=== PATIENT | female | born 1960 | race Caucasian/White ===

== ENCOUNTER 2019-01-28 06:50 | Inpatient (IN) | payer BC ==
[2019-01-23 13:18] LABS: BASO % 0.4 % (0-6); GRAN % 58.6 % (47-80); HEMATOCRIT 45.3 % (35.0-47.0); HEMOGLOBIN 14.2 gm/dl (11.6-16.0); LYMPH % 29.9 % (16-45); MEAN CORPUSCULAR HEMOGLOBIN 27.9 pg (27-33); MEAN CORPUSCULAR HGB CONC 31.3 g/dl (32-36); MEAN PLATELET VOLUME 9.9 fl (7.4-10.4); MONO % 6.1 % (0-9); PLATELET COUNT 357 K/uL (130-400); RED BLOOD COUNT 5.09 M/uL (3.80-5.40); RED CELL DISTRIBUTION WIDTH 13.2 % (11.5-14.5); WHITE BLOOD COUNT W/O DIFF 7.7 K/uL (4.2-12.2)
[2019-01-23 13:35] LABS: BLOOD UREA NITROGEN 17 mg/dL (8-23); CREATININE 0.6 mg/dL (0.5-0.9); EST GLOMERULAR FILTRATION RATE > 60 mL/min; GLUCOSE,RANDOM 84 mg/dL (74-109)
[~2019-01-28 06:50] MED LIST: CEFAZOLIN 1G VIAL IVP ONE; CEFAZOLIN 2 Gram 2 GM/50 ML BAG IVPB SCH; FAMOTIDINE 20MG TABLET PO ONE; MECLIZINE 25 MG TABLET PO ONE; METOCLOPRAMIDE 10 MG TABLET PO ONE; WATER STERILE FOR INJECTION 20 ML VIAL MC ONE
[2019-01-28] MEDS ORDERED: MIDAZOLAM HCL 2MG/2ML VIAL IV ONE ×2 (06:51→10:19)
[2019-01-28] MEDS ORDERED: TRANEXAMIC ACID 1,000 MG/10 ML ML IV ONE (06:51)
[2019-01-28] MEDS ORDERED: DEXAMETHASONE 4 MG/ML 1ML VIAL IVP ONE ×2 (06:51)
[2019-01-28] MEDS ORDERED: LIDOCAINE 2% MDV (20MG/ML) 20ML VIAL IV ONE (06:51)
[2019-01-28] MEDS ORDERED: ROPIVACAINE HCL (NAROPIN) /PF 5MG/ML 20ML VIAL IV ONE ×2 (06:51)
[2019-01-28] MEDS ORDERED: PROPOFOL 10 MG/ML VIAL IV ONE (06:51)
[2019-01-28] MEDS ORDERED: DIPHENHYDRAMINE HCL 50 MG/ML VIAL IVP ONE (06:51)
[2019-01-28] MEDS ORDERED: RINGERS SOLUTION,LACTATED 1,000 ML IV ONE ×2 (08:00→09:03)
[2019-01-28] MEDS: HYDROMORPHONE HCL 2 MG/ML VIAL IVP PRN ×5 (10:15→16:10)
[2019-01-28] MEDS ORDERED: DIPHENHYDRAMINE HCL 25 MG CAPSULE PO PRN (11:30)
[2019-01-28] MEDS ORDERED: OXYCODONE HCL/APAP 5MG/325MG TABLET PO PRN ×2 (11:30)
[2019-01-28] MEDS ORDERED: ACETAMINOPHEN 325 MG TAB PO PRN (11:30)
[2019-01-28] MEDS ORDERED: ONDANSETRON HCL IV 4 MG/2 ML VIAL IVP PRN (11:30)
[2019-01-28] MEDS ORDERED: METOCLOPRAMIDE HCL 10 MG/2 ML VIAL IVP PRN (11:30)
[2019-01-28] MEDS ORDERED: TRAMADOL HCL 50 MG TABLET PO PRN (11:30)
[2019-01-28] MEDS ORDERED: HYDROMORPHONE HCL 2 MG/ML VIAL IV PRN (11:30)
[2019-01-28] MEDS ORDERED: NALOXONE 0.4 MG/1 ML VIAL IVP PRN (11:30)
[2019-01-28] MEDS ORDERED: AL HYDROX/MAG HYDROX 30ML UD PO PRN (11:30)
[2019-01-28] MEDS ORDERED: MAGNESIUM HYDROXIDE 30 ML UDC PO PRN (11:30)
[2019-01-28] MEDS ORDERED: ZOLPIDEM TARTRATE 5 MG TABLET PO PRN (11:30)
[2019-01-28] MEDS ORDERED: HYDROCODONE/APAP 5/325MG TABLET PO PRN (11:30)
[2019-01-28] MEDS: RINGERS SOLUTION,LACTATED 1,000 ML IV SCH (11:35)
[2019-01-28] MEDS ORDERED: PANTOPRAZOLE SODIUM 40 MG TABLET PO PRN (11:37)
[2019-01-28] MEDS ORDERED: RINGERS SOLUTION,LACTATED 1,000 ML IV PRN (11:43)
[2019-01-28] MEDS: TRAMADOL HCL 50 MG TABLET PO PRN ×3 (12:27→21:27)
[2019-01-28] MEDS ORDERED: TRANEXAMIC ACID 1,000 MG in 0.9 % SODIUM CHLORIDE 100ML 100 ML IVPB ONE (13:00)
[2019-01-28] MEDS: HYDROCODONE/APAP 5/325MG TABLET PO PRN ×2 (14:44→20:17)
--- NOTE | 2019-01-28 14:53 | Rehab Evaluation ---
Patient Information - Patient Information Diagnosis: L knee OA Ordered Treatment: PT Evaluate and Treat Status: Initial Evaluation Surgery: Yes (L TKA) Date of Surgery: 01/28/19 Past Medical/Surgical Hx: PAST MEDICAL/SURGICAL HISTORY Past Surgical History LEFT KNEE SCOPE HYST CYST REMOVAL CHEST AND BACK C SCOPE PMH - Respiratory Hx Respiratory Disorders Yes Hx Bronchitis Yes: IN PAST Hx Pneumonia Yes: MANY YEARS AGO PMH - Cardiovascular Hx Cardiovascular Disorders Yes Hx Hypertension Yes: ON MEDS WITH GOOD CONTROL Exercise Tolerance Fair Comment: D/T KNEE PAIN PMH - Neuro Hx Neurological Disorders No PMH - GI Hx Gastrointestinal Disorders Yes Hx Gastroesophageal Reflux Yes: OCCASSIONALLY TAKES PRILOSEC OR TUMS PMH - Hx Genitourinary Disorders No PMH - Endocrine Hx Endocrine Disorders No PMH - Musculoskeletal Hx Musculoskeletal Disorders Yes Hx Arthritis Yes: KNEES PMH - Psych Hx Psychiatric Problems Yes Hx Anxiety Yes: CONTROLLED WITH MEDS Hx Depression Yes: CONTROLLED WITH MEDS PMH - Hematology/Oncology Hx Hematology/Oncology No Disorders Premorbid Status: Detail (The patient was inddpendent with all mobility prior to surgery.) Social History: Detail (The patient lives on a one story house with 3 steps at the enterance and no handrails. The patient's bathroom is equipped with: a walk in shower, shower bench, hand held shower elevated toilet. No grab bars are present in the bathroom. The patietn has a walker with wheels.) Precautions: [place], Fall, Other (WBAT on the L LE.) - Time With Patient Total Time Spent With Patient (Min): 30 Treatment Procedures: Detail (Initial Evaluation) Subjective Information - Subjective Information Per Patient (The patient had minimal complaints of pain which were increased after patient ambulated. The patient did not rate her pain using 0-10 pain scale.) Objective Data - Mental Status Patient Orientation: Oriented x3 - Visual Perception Appears within normal limits for therapeutic activities - ROM Not within normal limits (The patient's L LE AROM is limited s/p surgery. All other AROM is WNL.) - Strength/Tone Not within normal limits (The patient's L LE strength was not tested s/p surgery however was functional. The patient's R LE strength was WNL.) - Bed Mobility Independent (The patient was independent with supine to sit with use of trapeze and required minimal PA lifting L LE with sit to supine. The patient was independent with scooting up in bed with use of trapeze.) - Transfers Independent (The patient was independent with sit to and from stand transfer.) - Balance Balance Sitting: Good Balance Standing: Good - Gait Detail (The patient ambulated with front wheeled walker a distance of 25 feet x 1 with assist for equipment only.) Therapy Assessment - Therapy Assessment Detail (The patient was independent with bed mobility , transfers and ambulation. Feel the patient will progress well with mobility.) Problem List - Problem List Physical Therapy Problem List: Detail (1) Decreased L knee AROM and L LE strength as to be expected following surgery.) Goals - Goals Physical Therapy Goals: 1) The patient will be independent with bed mobility. 2 ) The patient will be independent with TKA HEP. 3) The patient will ambulate independent with front wheeled walker community distances. 4) The patient will ambulate with supervision for safety on stairs using proper technique. Prognosis - Prognosis Good Plan - Plan Physical Therapy Plan: PT 1-2 times a day for gait training, transfer training and instruction in HEP.
[2019-01-28] MEDS: CEFAZOLIN 1G VIAL IVP SCH (16:12)
[2019-01-28] MEDS: ASPIRIN 325 MG TAB ENTERIC-COATED PO SCH (21:27)
[2019-01-28] MEDS: AMLODIPINE BESYLATE 5MG TAB PO SCH (21:27)
[2019-01-28] MEDS: METOPROLOL SUCC 50 MG TABLET PO SCH (21:28)
[2019-01-28] MEDS: ATORVASTATIN 20 MG TABLET PO SCH (21:28)
[2019-01-28] MEDS: MELATONIN 5 MG TABLET PO SCH (21:29)
[2019-01-28] MEDS: SENNOSIDES/DOCUSATE SODIUM UD CAPSULE PO PRN (21:29)
[2019-01-29] MEDS: ALPRAZOLAM 0.25 MG TABLET PO PRN ×2 (00:52→23:05)
[2019-01-29] MEDS: CEFAZOLIN 1G VIAL IVP SCH ×2 (00:56→08:04)
[2019-01-29] MEDS: RINGERS SOLUTION,LACTATED 1,000 ML IV SCH ×2 (07:54→22:52)
[2019-01-29] MEDS: HYDROCODONE/APAP 5/325MG TABLET PO PRN ×2 (08:03→14:02)
[2019-01-29 08:27] LABS: HEMATOCRIT 40.3 % (35.0-47.0); MEAN CELL VOLUME 88.6 fl (81-97); MEAN CORPUSCULAR HEMOGLOBIN 28.6 pg (27-33); MEAN CORPUSCULAR HGB CONC 32.3 g/dl (32-36); MEAN PLATELET VOLUME 10.2 fl (7.4-10.4); PLATELET COUNT 311 K/uL (130-400); RED BLOOD COUNT 4.55 M/uL (3.80-5.40); WHITE BLOOD COUNT W/O DIFF 17.8 K/uL (4.2-12.2)
--- NOTE | 2019-01-29 09:20 | Operative Note ---
DATE OF SURGERY: 01/28/2019 SURGEON: Donny Garcia DO PREOPERATIVE DIAGNOSIS: Primary osteoarthritis of the left knee. POSTOPERATIVE DIAGNOSIS: Primary osteoarthritis of the left knee. OPERATION: Left total knee arthroplasty. DESCRIPTION OF PROCEDURE: This 59-year-old female was taken to the operating room and placed in the supine position on the operating room table. Spinal anesthesia was induced. The left lower extremity was then elevated, prepped with Hibiclens, and draped in the usual sterile fashion. It was exsanguinated and the tourniquet inflated to 300 mmHg. All scrub personnel wore personal isolation suits. An anterior longitudinal midline incision was made followed by a medial parapatellar arthrotomy incision. An intracondylar drill hole was made for the intramedullary alignment masood, and a 5-degree valgus 9 mm cut was made in the distal femur. Sizing jig was affixed, and a size 62.5 was seen to be the appropriate size. The 4-in-1 cutting block was then pinned in 3 degrees of external rotation. The appropriate cuts were made. We then directed our attention to the proximal tibia, and an extramedullary alignment guide was used to cut the proximal tibia referencing a 10 mm cut off the lateral tibial plateau. Once the appropriate rotational alignment was set, a 3-degree posterior slope cut was made and the wafer of bone was removed. Because we did not get below the subchondral bone, it was necessary for us to take an additional 2 mm, and this bone was then removed. Remnants of the menisci and osteophytes were removed from the posterior aspect of the joint. The tibia was sized to a size 71 and the stem punch was used. Trial components were inserted and a 10 mm bearing gave us full extension and excellent stability throughout full range of motion. The patella was then cut and restored to anatomic height 2i a 34 x 7.8 mm trial. With all components being stable, we removed them and copiously irrigated the knee with pulse lavage lactated Ringer's solution. All bony surfaces were dried and excess cement removed after the insertion of each component. Initially we placed a size 71 tibial baseplate followed by the insertion of the tibial bearing, followed by the femoral component, and finally the patella. Once the cement had hardened, the knee was again taken through range of motion and found to be stable. The wound again irrigated and suctioned. A drain was placed through a separate stab incision, and the arthrotomy incision was ten closed with a #2 Vicryl. The subcutaneous tissue was closed with 0 Vicryl and the skin was stapled. Sterile dressings were applied with a Polar Care. The patient was taken to the recovery room in satisfactory condition. GROSS PATHOLOGY: This patient had severe medial compartment and patellofemoral osteoarthritis with the lateral compartment being more relatively spared. Full- thickness articular cartilage loss was noted medially. Final components inserted were a [employer] V[employer] size 62.5 cruciate retaining femoral component, a size 71 tibial baseplate, a 10 mm anterior stabilized E1 bearing, and a 34 x 7.8 mm patella was used. HALEY
[2019-01-29] MEDS ORDERED: VALSARTAN 80 MG TAB PO SCH (10:00)
[2019-01-29] MEDS ORDERED: HYDROCHLOROTHIAZIDE 12.5 MG CAPSULE PO SCH (10:00)
[2019-01-29] MEDS ORDERED: BUPROPION HCL 150 MG TAB.SR.12H PO SCH (10:00)
[2019-01-29] MEDS: TRAMADOL HCL 50 MG TABLET PO PRN ×2 (10:05→18:17)
[2019-01-29] MEDS: ASPIRIN 325 MG TAB ENTERIC-COATED PO SCH ×2 (10:05→23:01)
--- NOTE | 2019-01-29 13:45 | Physical Therapy Tx Note ---
Physical Therapy Tx Note - Treatment Note Tolerated: Good Total Time Spent With Patient: 30 Physical Therapy Tx Note: Detail (Patient states left knee very painful this morning. Patient was supine upon OPTICAL ASSISTANT arrival. Patient transferred supine to sit min assist x1 to support left LE. Patient transferred sit to and from stand CGA x1. Patient ambulated 102 feet with wheeled walker SBA x1. Patient ascended and descended 3 steps CGA x1 with using stairwell railing and walker. Patient transferred sit to supine CGA x1 to support left LE. Patient scooted up in bed independently. Patient performed the following exercises x5 reps each: ankle pumps, quad sets, glut squeezes, heel slides, hamstring sets, and SLR with assist. Patient tolerated treatment well. Patient displays good understanding of stair climbing, and HEP. Patient was left supine in bed with call light within reach. Patient discharged from inpatient PT at this time as all goals are met.) Physical Therapy Problem List: Detail (1) Decreased L knee AROM and L LE strengt h as to be expected following surgery.) Physical Therapy Goals: 1) The patient will be independent with bed mobility. 2) The patient will be independent with TKA HEP. 3) The patient will ambulate independent with front wheeled walker community distances. 4) The patient will ambulate with supervision for safety on stairs using proper technique. Prognosis: Good Physical Therapy Plan: Patient discharged from inpatient PT at this time as all goals are met.
[2019-01-29] MEDS ORDERED: HYDROCODONE/APAP 7.5/325MG TABLET PO PRN (15:18)
--- NOTE | 2019-01-29 16:01 | Rehab Evaluation ---
Patient Information - Patient Information Diagnosis: L knee OA Ordered Treatment: OT Evaluate and Treat Status: Initial Evaluation Surgery: Yes (L TKA) Date of Surgery: 01/28/19 Past Medical/Surgical Hx: PAST MEDICAL/SURGICAL HISTORY Past Surgical History LEFT KNEE SCOPE HYST CYST REMOVAL CHEST AND BACK C SCOPE PMH - Respiratory Hx Respiratory Disorders Yes Hx Bronchitis Yes: IN PAST Hx Pneumonia Yes: MANY YEARS AGO PMH - Cardiovascular Hx Cardiovascular Disorders Yes Hx Hypertension Yes: ON MEDS WITH GOOD CONTROL Exercise Tolerance Fair Comment: D/T KNEE PAIN PMH - Neuro Hx Neurological Disorders No PMH - GI Hx Gastrointestinal Disorders Yes Hx Gastroesophageal Reflux Yes: OCCASSIONALLY TAKES PRILOSEC OR TUMS PMH - Hx Genitourinary Disorders No PMH - Endocrine Hx Endocrine Disorders No PMH - Musculoskeletal Hx Musculoskeletal Disorders Yes Hx Arthritis Yes: KNEES PMH - Psych Hx Psychiatric Problems Yes Hx Anxiety Yes: CONTROLLED WITH MEDS Hx Depression Yes: CONTROLLED WITH MEDS PMH - Hematology/Oncology Hx Hematology/Oncology No Disorders Premorbid Status: Detail (The patient was independent with all I/ADLs and mobility prior to surgery.) Social History: Detail (The patient lives with spouse in a one story house with 3 steps at the entrance and no handrails. The patient's bathroom is equipped with: a walk in shower, shower bench, hand held shower, and elevated toilet. No grab bars are present in the bathroom. The patient has a walker with wheels, radiology interventional physician, and sock aide.) Precautions: [place], Fall, Other (WBAT on the L LE.) - Time With Patient Total Time Spent With Patient (Min): 20 (1 Eval) Treatment Procedures: Detail (OT eval: low complexity) Subjective Information - Subjective Information Per Patient (Ok to see per [place] Xie. Pt agreeable to OT eval. Reports she is very painful throughout eval.) Objective Data - Pain Pain Present: Yes Pain Scale Used: Numeric (1 - 10) (10/10 L knee) - Mental Status Patient Orientation: Oriented x3 - Visual Perception Appears within normal limits for therapeutic activities - ROM Within normal limits - Strength/Tone Within normal limits - Coordination Appears within normal limits for therapeutic activities - Bed Mobility Independent (supine >< EOB) - Transfers Independent (sit >< stand from low surfaces to FWW) - Balance Balance Sitting: Good Balance Standing: Good - Sensation Intact - Gait Detail (Fxl amb. within bedroom with FWW with supervision.) - ADL's/IADL's Detail (OT educ. Pt on mod. tech for LB dressing, Pt dons pants with radiology interventional physician, slip on shoes, reports will assist with socks at DC. Educ. on mod. techs. for home safety in bathroom, kitchen, and laundry. Pt verbalizes understanding.) Therapy Assessment - Therapy Assessment Detail (Despite pain, Pt able to don/doff LB dress and fxl ambulate in bedroom safely. Pt will have 24/ assist at home from spouse. Rec. home DCP when medically ready.) Problem List - Problem List Physical Therapy Problem List: Detail (1) Decreased L knee AROM and L LE strength as to be expected following surgery.) Occupational Therapy Problem List: Detail (No further OT needs identified.) Goals - Goals Physical Therapy Goals: 1) The patient will be independent with bed mobility. 2) The patient will be independent with TKA HEP. 3) The patient will ambulate independent with front wheeled walker community distances. 4) The patient will ambulate with supervision for safety on stairs using proper technique. Occupational Therapy Goals: No further inpatient OT needs/goals identified. [facility] inpatient OT. Prognosis - Prognosis Good Plan - Plan Physical Therapy Plan: Patient discharged from inpatient PT at this time as all goals are met. Occupational Therapy Plan: No further inpatient OT needs/goals identified. [facility] inpatient OT. Thank you for this referral.
[2019-01-29] MEDS: HYDROMORPHONE HCL 2 MG/ML VIAL IVP PRN (16:04)
[2019-01-29] MEDS: HYDROCODONE/APAP 7.5/325MG TABLET PO PRN (20:17)
[2019-01-29] MEDS: METOPROLOL SUCC 50 MG TABLET PO SCH (23:01)
[2019-01-29] MEDS: MELATONIN 5 MG TABLET PO SCH (23:01)
[2019-01-29] MEDS: ATORVASTATIN 20 MG TABLET PO SCH (23:02)
[2019-01-29] MEDS: AMLODIPINE BESYLATE 5MG TAB PO SCH (23:02)
[2019-01-30] MEDS: TRAMADOL HCL 50 MG TABLET PO PRN ×2 (00:26→06:13)
[2019-01-30] MEDS: HYDROCODONE/APAP 7.5/325MG TABLET PO PRN (02:09)
[2019-01-30] MEDS: SENNOSIDES/DOCUSATE SODIUM UD CAPSULE PO PRN (06:14)
[2019-01-30 06:59] LABS: HEMATOCRIT 39.4 % (35.0-47.0); HEMOGLOBIN 12.7 gm/dl (11.6-16.0); MEAN CELL VOLUME 87.9 fl (81-97); MEAN CORPUSCULAR HEMOGLOBIN 28.3 pg (27-33); MEAN CORPUSCULAR HGB CONC 32.2 g/dl (32-36); MEAN PLATELET VOLUME 9.7 fl (7.4-10.4); PLATELET COUNT 313 K/uL (130-400); RED BLOOD COUNT 4.48 M/uL (3.80-5.40); RED CELL DISTRIBUTION WIDTH 13.3 % (11.5-14.5); WHITE BLOOD COUNT W/O DIFF 11.2 K/uL (4.2-12.2)
--- NOTE | 2019-01-30 10:00 | Discharge Summary ---
DATE OF ADMISSION: 01/28/2019 DATE OF DISCHARGE: 01/30/2019 ADMITTING DIAGNOSIS: Osteoarthritis of the left knee. DISCHARGE DIAGNOSIS: Osteoarthritis of the left knee. OPERATIVE PROCEDURE: Elective left total knee arthroplasty. This 59-year-old female was admitted to the hospital for elective total knee arthroplasty and tolerated the operative procedure well. She had more than expected pain following the surgery and we elected to keep her a second night for pain management. She will be discharged on 01/30/2019. She was instructed to take her aspirin 325 mg daily for 2 weeks. She will wear her HAI hose during the day and remove them at night. She will have outpatient physical therapy. She was given a prescription for Trinity 5/325 one or two every 6 hours as necessary for pain. She was also given a prescription for Ultram 50 mg one or two every 6 hours as necessary for pain and she was given 60 with a refill. Routine wound care instructions were given. She will follow up in the clinic in 2 weeks. Should she have any problems prior to being seen, she was instructed to call my office. HALEY
== END 2019-01-30 10:45 | disposition home or self-care (01) | DRG 470 ==
LOC: SUR 06:50 → MEDSURG 09:30 → SUR 10:58
PROVIDERS: ADMIT Orthopaedic Surgery; ATTEND Orthopaedic Surgery
PROC: 0SRD069 Replacement of Left Knee Joint with Oxidized Zirconium on Polyethylene Synthetic Substitute, Cemented, Open Approach (ICD-10-PCS; principal; 2019-01-28 09:30)
DX: M17.12 Unilateral primary osteoarthritis, left knee (principal); I10 Essential (primary) hypertension; E78.00 Pure hypercholesterolemia, unspecified; K21.9 Gastro-esophageal reflux disease without esophagitis
CPT/HCPCS: 76942; 80048; 85025; 97110; 97530; J0690; J1200; J3490; J7120

== ENCOUNTER 2019-04-22 05:35 | Day surgery (SDC) | payer BC ==
[2019-04-22] MEDS ORDERED: TRANEXAMIC ACID 1,000 MG/10 ML ML IV ONE (05:36)
[2019-04-22] MEDS ORDERED: KETOROLAC 30 MG/ML VIAL IVP ONE (05:36)
[2019-04-22] MEDS ORDERED: GLYCOPYRROLATE 0.2 MG/ML ML IV ONE (05:36)
[2019-04-22] MEDS ORDERED: KETAMINE HCL 100MG/1ML VIAL INJ ONE (05:36)
[2019-04-22] MEDS ORDERED: MIDAZOLAM HCL 2MG/2ML VIAL IV ONE (05:36)
[2019-04-22] MEDS ORDERED: DEXAMETHASONE 4 MG/ML 1ML VIAL IVP ONE (05:36)
[2019-04-22] MEDS ORDERED: LIDOCAINE 2% MDV (20MG/ML) 20ML VIAL IV ONE (05:36)
[2019-04-22] MEDS ORDERED: ROPIVACAINE HCL (NAROPIN) /PF 5MG/ML 20ML VIAL IV ONE (05:36)
[2019-04-22] MEDS ORDERED: PROPOFOL 10 MG/ML VIAL IV ONE (05:36)
[2019-04-22] MEDS ORDERED: FENTANYL PF 100MCG/2ML VIAL IV ONE (05:36)
[2019-04-22] MEDS ORDERED: METOCLOPRAMIDE 10 MG TABLET PO ONE (06:00)
[2019-04-22] MEDS ORDERED: MECLIZINE 25 MG TABLET PO ONE (06:00)
[2019-04-22] MEDS ORDERED: CEFAZOLIN 2 Gram 2 GM/50 ML BAG IVPB ONE (06:00)
[2019-04-22] MEDS ORDERED: RINGERS SOLUTION,LACTATED 1,000 ML IV ONE ×2 (06:00→07:46)
[2019-04-22] MEDS ORDERED: FAMOTIDINE 20MG TABLET PO ONE (06:00)
[2019-04-22] MEDS ORDERED: MAGNESIUM HYDROXIDE 30 ML UDC PO PRN (10:00)
[2019-04-22] MEDS ORDERED: METOCLOPRAMIDE HCL 10 MG/2 ML VIAL IVP PRN (10:00)
[2019-04-22] MEDS ORDERED: ONDANSETRON HCL IV 4 MG/2 ML VIAL IVP PRN (10:00)
[2019-04-22] MEDS ORDERED: NALOXONE 0.4 MG/1 ML VIAL IVP PRN (10:00)
[2019-04-22] MEDS ORDERED: HYDROCODONE/APAP 7.5/325MG TABLET PO PRN (10:00)
[2019-04-22] MEDS ORDERED: DIPHENHYDRAMINE HCL 25 MG CAPSULE PO PRN (10:00)
[2019-04-22] MEDS ORDERED: TRAMADOL HCL 50 MG TABLET PO PRN (10:00)
[2019-04-22] MEDS ORDERED: ACETAMINOPHEN 325 MG TAB PO PRN (10:00)
[2019-04-22] MEDS ORDERED: HYDROMORPHONE HCL 2 MG/ML VIAL IV PRN (10:00)
[2019-04-22] MEDS ORDERED: ZOLPIDEM TARTRATE 5 MG TABLET PO PRN (10:00)
[2019-04-22] MEDS ORDERED: SENNOSIDES/DOCUSATE SODIUM UD CAPSULE PO PRN (10:00)
[2019-04-22] MEDS ORDERED: AL HYDROX/MAG HYDROX 30ML UD PO PRN (10:00)
[2019-04-22] MEDS ORDERED: TRANEXAMIC ACID 1,000 MG in 0.9 % SODIUM CHLORIDE 100ML 100 ML IVPB ONE (11:00)
[2019-04-22] MEDS ORDERED: LORAZEPAM 0.5 MG TABLET PO PRN (11:16)
[2019-04-22] MEDS ORDERED: PANTOPRAZOLE SODIUM 40 MG TABLET PO PRN (11:16)
[2019-04-22] MEDS: RINGERS SOLUTION,LACTATED 1,000 ML IV SCH (12:17)
[2019-04-22] MEDS: HYDROCODONE/APAP 7.5/325MG TABLET PO PRN ×2 (12:19→19:01)
--- NOTE | 2019-04-22 15:14 | Rehab Evaluation ---
Patient Information - Patient Information Diagnosis: R knee OA Ordered Treatment: PT Evaluate and Treat Status: Initial Evaluation Surgery: Yes (R TKA) Date of Surgery: 04/22/19 Past Medical/Surgical Hx: PAST MEDICAL/SURGICAL HISTORY Past Surgical History LTKA -2018 LEFT KNEE SCOPE HYST CYST REMOVAL CHEST AND BACK C SCOPE PMH - Respiratory Hx Respiratory Disorders Yes Hx Bronchitis Yes: IN PAST Hx Pneumonia Yes: MANY YEARS AGO PMH - Cardiovascular Hx Cardiovascular Disorders Yes Hx Hypertension Yes: ON MEDS WITH GOOD CONTROL Exercise Tolerance Fair Comment: D/T KNEE PAIN PMH - Neuro Hx Neurological Disorders No PMH - GI Hx Gastrointestinal Disorders Yes Hx Gastroesophageal Reflux Yes: OCCASSIONALLY TAKES PRILOSEC OR TUMS PMH - Hx Genitourinary Disorders No PMH - Endocrine Hx Endocrine Disorders No PMH - Musculoskeletal Hx Musculoskeletal Disorders Yes Hx Arthritis Yes: KNEES PMH - Psych Hx Psychiatric Problems Yes Hx Anxiety Yes: CONTROLLED WITH MEDS Hx Depression Yes: CONTROLLED WITH MEDS PMH - Hematology/Oncology Hx Hematology/Oncology No Disorders Premorbid Status: Detail (The patient was independent with mobility prior to surgery.) Social History: Detail (The patient lives with spouse in a one story house with 4 steps at the enterance and no hand rails. The bathroom is equipped with: a walk in shower,hand held shower, shower seat, elevated toilet with riser seat. The patient has a walker with wheels, standard cane and crutches.) Precautions: [place], Fall, Other (WBAT on the R LE) - Time With Patient Total Time Spent With Patient (Min): 30 Treatment Procedures: Detail (Initial Evaluation low complexity,Gait training) Subjective Information - Subjective Information Per Patient (The paitent had complaints of Level 2 R knee pain using 0-10 pain scale.) Objective Data - Mental Status Patient Orientation: Oriented x3 - Visual Perception Appears within normal limits for therapeutic activities - ROM Not within normal limits (The patient's R knee AROM was limited as to be expected s/p surgery. All other AROM was WNL.) - Strength/Tone Not within normal limits (The patient's LE strength was not tested secondary to s/p surgery however was functional in both LE's.) - Bed Mobility Independent (The patient was independent with supine to and from sit transfer.) - Transfers Independent (The patient was independent with sit to and from stand transfer.) - Balance Balance Sitting: Good Balance Standing: Good - Gait Detail (The patient ambulated with front wheeled walker WBAT on the R LE a distance of 7 feet x 1(to bathroom) and 65 feet x 1 with supervision for safety only.) Therapy Assessment - Therapy Assessment Detail (The patient was independent with bed mobility and transfers and am bulated with supervision for safety only. Feel the patient will progress well with mobility.) Problem List - Problem List Physical Therapy Problem List: Detail (1) Decreased R knee AROM as to be expected following surgery. 2) Decreased R LE strength as to be expected following surgery.) Goals - Goals Physical Therapy Goals: 1) The patient will ambulate on stairs with supervision for safety only using proper technique. 2) The patient will be independent with a HEP of TKA exercises. Prognosis - Prognosis Good Plan - Plan Physical Therapy Plan: PT 1-2 sessions for gait training on stairs and instruction in HEP.
[2019-04-22] MEDS: TRAMADOL HCL 50 MG TABLET PO PRN ×2 (15:43→21:57)
[2019-04-22] MEDS: CEFAZOLIN 2 Gram 2 GM/50 ML BAG IVPB SCH ×2 (15:44→23:58)
[2019-04-22] MEDS: MELATONIN 5 MG TABLET PO SCH ×2 (21:58→22:19)
[2019-04-22] MEDS: ASPIRIN 325 MG TAB ENTERIC-COATED PO SCH (21:59)
[2019-04-22] MEDS ORDERED: METOPROLOL SUCC 50 MG TABLET PO SCH (22:00)
[2019-04-22] MEDS ORDERED: ATORVASTATIN 20 MG TABLET PO SCH (22:00)
[2019-04-22] MEDS ORDERED: AMLODIPINE BESYLATE 5MG TAB PO SCH (22:00)
[2019-04-23] MEDS: HYDROCODONE/APAP 7.5/325MG TABLET PO PRN ×3 (01:09→13:48)
[2019-04-23] MEDS: RINGERS SOLUTION,LACTATED 1,000 ML IV SCH ×2 (02:40→03:49)
[2019-04-23] MEDS: TRAMADOL HCL 50 MG TABLET PO PRN ×2 (05:29→10:58)
--- NOTE | 2019-04-23 08:11 | Rehab Evaluation ---
Patient Information - Patient Information Diagnosis: R knee OA Ordered Treatment: OT Evaluate and Treat Status: Initial Evaluation Surgery: Yes (R TKA) Date of Surgery: 04/22/19 Past Medical/Surgical Hx: PAST MEDICAL/SURGICAL HISTORY Past Surgical History LTKA -2018 LEFT KNEE SCOPE HYST CYST REMOVAL CHEST AND BACK C SCOPE PMH - Respiratory Hx Respiratory Disorders Yes Hx Bronchitis Yes: IN PAST Hx Pneumonia Yes: MANY YEARS AGO PMH - Cardiovascular Hx Cardiovascular Disorders Yes Hx Hypertension Yes: ON MEDS WITH GOOD CONTROL Exercise Tolerance Fair Comment: D/T KNEE PAIN PMH - Neuro Hx Neurological Disorders No PMH - GI Hx Gastrointestinal Disorders Yes Hx Gastroesophageal Reflux Yes: OCCASSIONALLY TAKES PRILOSEC OR TUMS PMH - Hx Genitourinary Disorders No PMH - Endocrine Hx Endocrine Disorders No PMH - Musculoskeletal Hx Musculoskeletal Disorders Yes Hx Arthritis Yes: KNEES PMH - Psych Hx Psychiatric Problems Yes Hx Anxiety Yes: CONTROLLED WITH MEDS Hx Depression Yes: CONTROLLED WITH MEDS PMH - Hematology/Oncology Hx Hematology/Oncology No Disorders Premorbid Status: Detail (The patient was independent with mobility prior to surgery. 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 Her spouse is responsible for all home mgmt, meal prep and laundry tasks.) Social History: Detail (The patient lives with spouse in a one story house with 4 steps at the entrance and no hand rails. The bathroom is equipped with: a walk in shower,hand held shower, shower seat and elevated toilet with riser seat. The patient has a walker with wheels, standard cane and crutches.) Precautions: [place], Fall, Other (WBAT on the R LE) - Time With Patient Total Time Spent With Patient (Min): 45 Treatment Procedures: Detail (OT eval low complexity) Subjective Information - Subjective Information Per Patient Objective Data - Pain Pain Present: Yes (10/03) - Mental Status Patient Orientation: Oriented x3 - Visual Perception Appears within normal limits for therapeutic activities - ROM Within normal limits (Scott UE AROM WNL) - Strength/Tone Within normal limits (Scott UE strength WNL) - Coordination Appears within normal limits for therapeutic activities - Bed Mobility Independent (Ind with supine to sit and sit to supine) - Transfers Independent (Ind with sit to stand from EOB and commode heights.) - Balance Balance Sitting: Good Balance Standing: Good - Sensation Intact - Gait Detail (Pt ambulating in room with 2 wheeled walker and SBA.) - ADL's/IADL's Detail (Pt educated and able to demonstrate learning of modified LE dressing techniques including doffing briefs and slipper socks and donning underwear, pants and tennis shoes. Reviewed kitchen and shower modifications and safety, pt verbalized understanding. Pt was able to demonstrate Ind with toileting.) Therapy Assessment - Therapy Assessment Detail (Pt demonstrated Ind with modified LE dressing techniques.) Problem List - Problem List Physical Therapy Problem List: Detail (1) Decreased R knee AROM as to be expected following surgery. 2) Decreased R LE strength as to be expected following surgery.) Occupational Therapy Problem List: Detail (No current IP OT problems identified.) Goals - Goals Physical Therapy Goals: 1) The patient will ambulate on stairs with supervision for safety only using proper technique. 2) The patient will be independent with a HEP of TKA exercises. Occupational Therapy Goals: No current IP OT goals identified. Prognosis - Prognosis Good Plan - Plan Physical Therapy Plan: PT 1-2 sessions for gait training on stairs and instruction in HEP. Occupational Therapy Plan: No further IP OT recommended. Thank you for this referral.
[2019-04-23] MEDS: CEFAZOLIN 2 Gram 2 GM/50 ML BAG IVPB SCH (09:00)
[2019-04-23] MEDS ORDERED: BUPROPION HCL 150 MG TAB.SR.12H PO SCH (10:00)
[2019-04-23] MEDS ORDERED: HYDROCHLOROTHIAZIDE 12.5 MG CAPSULE PO SCH (10:00)
[2019-04-23] MEDS ORDERED: LOSARTAN POTASSIUM 25 MG TABLET PO SCH (10:00)
[2019-04-23] MEDS: ASPIRIN 325 MG TAB ENTERIC-COATED PO SCH (10:59)
--- NOTE | 2019-04-23 11:02 | Physical Therapy Tx Note ---
Physical Therapy Tx Note - Treatment Note Tolerated: Good Total Time Spent With Patient: 25 Physical Therapy Tx Note: Detail (The patient was in bed when PT arrived. The was independent with supine to sit and sit to and from stand transfer. The patient ambulated with front wheeled walker a distance of 134 feet x1 WBAT on the R LE. The patient ambulated on 3 stairs with use of cane using proper technique with supervision for safety only. The patient completed the following TKA exercises including: ankle pumps, seated heel slides, quad sets, hamstring sets, SLR and gluteal sets. The patient has met all inpatient PT goals and is discharged from inpatient PT. The patient is to received Outpatient PT.) Physical Therapy Problem List: Detail (1) Decreased R knee AROM as to be expected following surgery. 2) Decreased R LE strength as to be expected following surgery.) Physical Therapy Goals: 1) The patient will ambulate on stairs with supervision for safety only using proper technique.(Goal Met). 2) The patient will be independent with a HEP of TKA exercises.(Goal Met) Physical Therapy Plan: PT 1-2 sessions for gait training on stairs and instruction in HEP.
--- NOTE | 2019-04-24 08:11 | Operative Note ---
DATE OF SURGERY: 04/22/2019 SURGEON: Donny Garcia DO PREOPERATIVE DIAGNOSIS: Osteoarthritis of the right knee. POSTOPERATIVE DIAGNOSIS: Osteoarthritis of the right knee. OPERATION: Right total knee arthroplasty. DESCRIPTION OF PROCEDURE: This 59-year-old female was taken to the operating room and placed in the supine position on the operating room table after spinal anesthesia had been induced by the department of anesthesia. The right lower extremity was then elevated. It was prepped with Hibiclens and draped in the usual sterile fashion. It was exsanguinated and the tourniquet inflated to 300 mmHg. All scrub personnel wore personal isolation suits. An anterior longitudinal midline incision was made followed by a medial parapatellar arthrotomy incision. An intracondylar drill hole was made for the intramedullary alignment masood, and a 9 mm 5-degree valgus cut was made in the distal femur. The wafers of bone were removed. Subsequently, the sizing jig was affixed, and a size 62.5 was seen to be the appropriate size in the anterior- posterior dimension and also satisfactory in the medial-lateral dimension. The cutting block was pinned in 3 degrees of external rotation. The appropriate cuts were made. Wafers of bone were removed. We then directed our attention to the proximal tibia, and an extramedullary alignment guide was used to cut the proximal tibia referencing a 10 mm cut off the lateral tibial plateau. Once the cutting block had been set in the appropriate position, a 3-degree posterior slope cut was made and the wafer of bone was removed. Remnants of the menisci were removed as well as remnants of the osteophytes at the posterior aspect of the joint. The patella was then measured, cut, and restored to anatomic height with a 34 x 7.8 mm patella. The trial components were inserted. Had had measured a size 67 to be the appropriate size for the tibial baseplate. The stem punch was used. We first trialed a 10 and then an 11 and then a 12 mm bearing, and 12 was seen to be the appropriate size. The wound copiously irrigated after all trial components had been removed, and all bony surfaces were irrigated and then dried. All components were cemented and excess cement removed after the insertion of each component. Initially, the tibial baseplate was cemented followed by the insertion of the tibial bearing, femoral component, and finally the patella. Once the cement had hardened, the knee was again taken through range of motion with excellent stability throughout the full range of motion being identified. The wound was closed with #2 Vicryl in the capsule, the subcutaneous tissue closed with 0 Vicryl, and the skin was stapled. Sterile dressings were applied with a Polar Care. The patient was taken to the recovery room in satisfactory condition. GROSS PATHOLOGY: This patient demonstrated advanced medial and patellofemoral osteoarthritis, full-thickness articular cartilage loss noted in the medial compartment, grade 2 changes noted in the lateral compartment. Final components inserted were a [employer] size 62.5 cruciate retaining femur, a size 12 x 67 mm tibial bearing E1, a size 67 tibia, and [address] x 7.[address] [facility]
--- NOTE | 2019-04-24 08:11 | Discharge Summary ---
DATE OF ADMISSION: 04/22/2019 DATE OF DISCHARGE: 04/23/2019 ADMITTING DIAGNOSIS: Osteoarthritis of the right knee. DISCHARGE DIAGNOSIS: Osteoarthritis of the right knee. OPERATIVE PROCEDURE: Elective right total knee arthroplasty. HISTORY OF PRESENT ILLNESS: This 59-year-old female was admitted to the hospital for elective total knee arthroplasty. She tolerated the operative procedure well, the drains were removed the first postoperative day. She did not demonstrate any sign of calf pain or any other sign of DVT. No chest pain or shortness of breath. The patient did clear physical therapy and will be discharged today with outpatient physical therapy. DISCHARGE INSTRUCTIONS: She was instructed on the use of her HAI hose, to wear them during the day and remove them at night. She will take aspirin 7.5/325 mg #20, 1 p.o. b.i.d. (the patient has some medication at home). Aspirin 325 mg daily for 4 weeks. Routine wound care instructions were given. She will follow up in the clinic in 2 weeks. Should she have any problems prior to being seen, she was instructed to call my office. [facility]
== END 2019-04-23 14:00 | disposition home health service (06) ==
LOC: SUR 05:35 → MEDSURG 09:46 → SUR 04-23 14:00
PROVIDERS: ATTEND Orthopaedic Surgery
DX: M17.11 Unilateral primary osteoarthritis, right knee (principal); I10 Essential (primary) hypertension; E78.00 Pure hypercholesterolemia, unspecified; K21.9 Gastro-esophageal reflux disease without esophagitis
CPT/HCPCS: 76942; J1885; J3490; J7120